=== PATIENT | male | born 1980 | race African-American/Black ===

== ENCOUNTER 2021-05-25 09:11 | Emergency (ER) | payer BC, OTHER ==
[2021-05-26 00:53] LABS: SARS-CoV-2 PCR by NAA DETECTED (NotDetected)
== END 2021-05-25 09:50 | disposition home or self-care (01) ==
LOC: MADERS 09:11
DX: U07.1 COVID-19 (principal); I34.0 Nonrheumatic mitral (valve) insufficiency
CPT/HCPCS: 99283; U0003; U0005

== ENCOUNTER 2021-06-09 12:18 | Emergency (ER) | payer BC ==
[2021-06-10 08:28] LABS: SARS-CoV-2 PCR by NAA Not Detected (NotDetected)
== END 2021-06-09 14:19 | disposition home or self-care (01) ==
LOC: MADERS 12:18
DX: U07.1 COVID-19 (principal)
CPT/HCPCS: 71045; U0003; U0005